=== PATIENT | male | born 1935 | race Caucasian/White ===

== ENCOUNTER 2020-06-01 21:05 | Emergency (ER) | payer OTHER ==
[2020-06-01 21:21] VITALS: TEMP 98.7; BMI 21.2
[2020-06-01 22:37] LABS: EOS % 4.5 % (0-4.5); HEMATOCRIT 37.4 % (35.4-49); HEMOGLOBIN 12.4 GM/dL (11.7-16.9); LYMPH % 35.1 % (8-40); MCH 32.2 pg (25.7-33.7); MCHC 33.3 g/dl (32.0-35.9); MEAN CELL VOLUME 96.8 fl (80-96); MONO % 13.5 % (3.8-10.2); NEUT % 45.9 % (42.8-82.8); PLATELET COUNT 198 K/MM3 (134-434); RBC 3.86 M/mm3 (4.00-5.60); RDW 13.7 % (11.9-15.9); WHITE BLOOD COUNT 5.2 K/mm3 (4.0-10.0)
[2020-06-01] MEDS ORDERED: ASPIRIN 81 MG CHEWABLE TABLETS PO ONE ×2 (23:00→23:01)
[2020-06-01 23:03] LABS: CHLORIDE 107 mmol/L (98-107); POTASSIUM 4.1 mmol/L (3.5-5.1); SODIUM 139 mmol/L (136-145)
[2020-06-01 23:05] LABS: ALBUMIN 3.6 g/dl (3.4-5.0); ANION GAP 4 MMOL/L (8-16); BLOOD UREA NITROGEN 19.8 mg/dL (7-18); CALCIUM 8.5 mg/dL (8.5-10.1); CO2 29 mmol/L (21-32); GLUCOSE,RANDOM 84 mg/dL (74-106)
[2020-06-01 23:08] LABS: CREATININE 1.3 mg/dL (0.55-1.3); SGOT/AST 18 U/L (15-37); SGPT/ALT 25 U/L (13-61)
[2020-06-01] MEDS ORDERED: ASPIRIN 81 MG CHEWABLE TABLETS ONE (23:09)
[2020-06-01 23:10] LABS: BILIRUBIN,TOTAL 0.5 mg/dL (0.2-1); TOT PROT 7.2 g/dl (6.4-8.2)
[2020-06-01 23:11] LABS: ALK PHOS 89 U/L (45-117)
[2020-06-01 23:13] LABS: N-TERMINAL BNP 346.3 pg/ml (5-450)
[2020-06-01 23:42] VITALS: BP 155/53; PULSE 64
== END 2020-06-01 23:31 | disposition home or self-care (01) ==
LOC: JER 21:05
DX: R07.89 Other chest pain (principal); K21.9 Gastro-esophageal reflux disease without esophagitis
CPT/HCPCS: 36415; 71045-TC-FY; 80053; 82550; 83880; 84484; 85025; 85730; 93005; 93010; 99285-25; C9803; U0003